=== PATIENT | female | born 1955 | race Caucasian/White ===

== ENCOUNTER 2021-05-07 03:07 | Inpatient (IN) ==
[2021-05-07] MEDS ORDERED: NITROGLYCERIN 2% OINT 1 INCH/GM PACK TOP STA (04:14)
[2021-05-07 05:47] LABS: Basophils % 0.3 % (0.0-0.8); Eosinophils % 0.4 % (0.00-10.9); Hematocrit 30.9 VOL% (35.7-47.0); Hemoglobin 9.3 GM/DL (12.0-16.0); Immature Granulocytes % 2.4 %; Immature Granulocytes Absolute 0.23 #; Lymphocytes # 0.6 10*3/uL (1.4-4.0); Lymphocytes % 6.2 % (21.3-54.2); Mean Corpuscular HGB Conc 30.1 GM/DL (32-36); Mean Corpuscular Volume 100.7 FL (87-102); Mean Platelet Volume 11.3 FL (9.6-12.0); Monocytes % 4.7 % (1.7-12.7); Platelet Count 94 T/CUMM (130-400); Red Blood Count 3.07 MC/CUMM (3.8-5.5); Red Cell Distribution Width 16.2 % (9.3-17.3); White Blood Count 9.6 T/CUMM (4-12)
[2021-05-07 05:59] LABS: INR 0.9; PT Patient Result 10.3 SECS (10.5-12.0)
[2021-05-07 06:05] LABS: Albumin 3.7 G/DL (3.4-5.0); Bilirubin,Total 0.6 MG/DL (0.20-1.00); Calcium 7.6 MG/DL (8.5-10.1); Osmolality,Calculated 300.2 MOS/KG (273-304); Total Protein 7.6 G/DL (6.4-8.2)
[2021-05-07 06:11] LABS: Potassium 7.6 MMOL/L (3.5-5.1)
[2021-05-07] MEDS ORDERED: DEXTROSE 50% 25 GM/50 ML VIAL IV STA (06:20)
[2021-05-07] MEDS ORDERED: CALCIUM GLUCONATE 1,000 MG in SODIUM CHLORIDE 0.9% 100 ML IV ONE (06:20)
[2021-05-07] MEDS ORDERED: INSULIN REGULAR 100 UNIT/ML IV STA (06:21)
[2021-05-07 06:31] LABS: Platelet Estimate Decreased
[2021-05-07 06:32] LABS: Anisocytosis 2+; Macrocytosis Slight; Tear Drop Cells Few
[2021-05-07] MEDS ORDERED: SODIUM POLYSTYRENE SULFATE 15 GM/60 ML BOTTLE PO STA (06:32)
[2021-05-07] MEDS ORDERED: CALCIUM GLUCONATE 1,000 MG/10 ML VIAL IV ONE (07:02)
[2021-05-07] MEDS ORDERED: GLUCAGON 1 MG VIAL IM PRN (08:17)
[2021-05-07] MEDS ORDERED: DEXTROSE 50% 25 GM/50 ML VIAL IV PRN ×2 (08:17→08:52)
[2021-05-07] MEDS ORDERED: hydrALAZINE 20 MG/1 ML VIAL IV PRN (08:18)
[2021-05-07] MEDS ORDERED: ONDANSETRON 4 MG/2 ML VIAL IV PRN (08:18)
[2021-05-07] MEDS ORDERED: BISACODYL 5 MG TABLET PO PRN (08:18)
[2021-05-07] MEDS: SODIUM ZIRCONIUM CYCLOSILICATE 10 GM PACK PO SCH ×3 (08:47→23:41)
[2021-05-07] MEDS: HEPARIN 5,000 UNIT/1 ML VIAL SUBCUT SCH ×2 (08:47→22:01)
[2021-05-07] MEDS: ASPIRIN EC 81 MG TABLET PO SCH (09:05)
[2021-05-07] MEDS: MIDODRINE 5 MG TABLET PO SCH ×2 (10:00→22:02)
[2021-05-07] MEDS: ALBUTEROL/IPRATROPIUM 3 ML NEB RESP TX SCH ×2 (12:38→19:23)
[2021-05-07] MEDS: INSULIN LISPRO 100 UNIT/ML SUBCUT SCH ×3 (14:22→22:41)
[2021-05-07 14:41] LABS: Calcium 8.1 MG/DL (8.5-10.1); Potassium 5.9 MMOL/L (3.5-5.1)
[2021-05-08] MEDS: ALBUTEROL/IPRATROPIUM 3 ML NEB RESP TX SCH ×4 (00:34→19:00)
[2021-05-08 05:29] LABS: Basophils % 0.5 % (0.0-0.8); Eosinophils # 0.3 10*3/uL (0.0-0.87); Eosinophils % 3.7 % (0.00-10.9); Hematocrit 28.1 VOL% (35.7-47.0); Hemoglobin 8.2 GM/DL (12.0-16.0); Immature Granulocytes % 2.2 %; Immature Granulocytes Absolute 0.16 #; Lymphocytes # 1.2 10*3/uL (1.4-4.0); Lymphocytes % 16.3 % (21.3-54.2); Mean Corpuscular HGB Conc 29.2 GM/DL (32-36); Mean Corpuscular Volume 104.5 FL (87-102); Mean Platelet Volume 10.9 FL (9.6-12.0); Neutrophils % 71.3 % (38.7-73.9); Platelet Count 93 T/CUMM (130-400); Red Blood Count 2.69 MC/CUMM (3.8-5.5); Red Cell Distribution Width 16.4 % (9.3-17.3); White Blood Count 7.3 T/CUMM (4-12)
[2021-05-08 05:52] LABS: Bilirubin,Total 0.5 MG/DL (0.20-1.00); Calcium 7.4 MG/DL (8.5-10.1); Osmolality,Calculated 297.8 MOS/KG (273-304); Potassium 5.7 MMOL/L (3.5-5.1); Risk Ratio 3.97; Total Protein 7.1 G/DL (6.4-8.2); VLDL Cholesterol 51.6 MG/DL
[2021-05-08 06:33] LABS: Platelet Estimate Decreased
[2021-05-08 06:34] LABS: Anisocytosis 2+; Macrocytosis 1+; Spherocytes Few; Tear Drop Cells Few
[2021-05-08] MEDS: INSULIN LISPRO 100 UNIT/ML SUBCUT SCH ×4 (08:49→22:55)
[2021-05-08] MEDS ORDERED: CLOPIDOGREL 75 MG TABLET PO SCH (09:00)
[2021-05-08] MEDS: ATORVASTATIN 80 MG TABLET PO SCH (10:46)
[2021-05-08] MEDS: PANTOPRAZOLE 40 MG TABLET PO SCH (10:46)
[2021-05-08] MEDS: SODIUM ZIRCONIUM CYCLOSILICATE 10 GM PACK PO SCH ×3 (10:46→21:54)
[2021-05-08] MEDS: ASPIRIN EC 81 MG TABLET PO SCH (10:46)
[2021-05-08] MEDS: HEPARIN 5,000 UNIT/1 ML VIAL SUBCUT SCH ×2 (10:46→21:54)
[2021-05-08] MEDS: ISOSORBIDE MONONITRATE 30 MG TABLET PO SCH (10:47)
[2021-05-08] MEDS: PROPRANOLOL 20 MG TABLET PO SCH ×2 (10:47→21:53)
[2021-05-08] MEDS: MIDODRINE 5 MG TABLET PO SCH ×2 (11:04→21:53)
[2021-05-08] MEDS: ACETAMINOPHEN 325 MG TABLET PO PRN (12:28)
[2021-05-08] MEDS: ZINC OXIDE 16% PASTE 57 GM TUBE TOP SCH (21:54)
[2021-05-09] MEDS: ALBUTEROL/IPRATROPIUM 3 ML NEB RESP TX SCH ×2 (00:25→07:28)
[2021-05-09] MEDS: ACETAMINOPHEN 325 MG TABLET PO PRN (03:55)
[2021-05-09 08:30] VITALS: BP 127/110
[2021-05-09] MEDS: INSULIN LISPRO 100 UNIT/ML SUBCUT SCH (08:57)
[2021-05-09] MEDS: ASPIRIN EC 81 MG TABLET PO SCH (08:58)
[2021-05-09] MEDS: ATORVASTATIN 80 MG TABLET PO SCH (08:58)
[2021-05-09] MEDS: ISOSORBIDE MONONITRATE 30 MG TABLET PO SCH (08:58)
[2021-05-09] MEDS: PROPRANOLOL 20 MG TABLET PO SCH (08:59)
[2021-05-09] MEDS: HEPARIN 5,000 UNIT/1 ML VIAL SUBCUT SCH (08:59)
[2021-05-09] MEDS: PANTOPRAZOLE 40 MG TABLET PO SCH (08:59)
[2021-05-09] MEDS: MIDODRINE 5 MG TABLET PO SCH (08:59)
[2021-05-09] MEDS: ZINC OXIDE 16% PASTE 57 GM TUBE TOP SCH (09:04)
== END 2021-05-09 12:17 | disposition home or self-care (01) | DRG 640 ==
LOC: EDBD → EDUNIT# → N.EDINP 03:07 → N.ED 03:07 → SUATTDRO 07:30 → N.TELEN 22:25
PROVIDERS: ADMIT Hospitalist; ATTEND Internal Medicine Geriatric Medicine